=== PATIENT | male | born 1995 | race Hispanic/Latino ===

== ENCOUNTER 2017-07-25 15:02 | Emergency (ER) | payer OTHER ==
[2017-07-25 15:56] VITALS: BP 104/66; PULSE 70; RESP 16; TEMP 97.9; O2SAT 99
--- NOTE | 2017-07-25 17:30 | ED PDOC ---
HPI: Head Injury Time Seen by Provider: 07/25/17 16:50 Chief Complaint (Nursing): Trauma Chief Complaint (Provider): Head Injury History Per: Patient History/Exam Limitations: no limitations Injury Occurred (Timing): Hours Ago: (8) Patient States: Struck With Object Additional Complaint(s): Keo Dowell is a 21 year old male that presents to the ED with a chief complaint of a head injury that he has been experiencing for the past 8 hours a result of an object striking his head. Patient states that while walking on a [address] around 8 AM this morning a metal object fell off of a scaffolding approximately 15 feet above him and struck him on the top of his head, in the middle. He reports that afterwards he took two final exams. Patient denies any neck pain or LOC. Past Medical History Reviewed: Historical Data, Nursing Documentation, Vital Signs Vital Signs: Last Vital Signs Temp 97.9 F 07/25/17 15:52 Pulse 70 07/25/17 15:52 Resp 16 07/25/17 15:52 BP 104/66 07/25/17 15:52 Pulse Ox 99 07/25/17 15:52 - Medical History PMH: No Chronic Diseases - Family History Family History: States: Unknown Family Hx - Allergies Allergies/Adverse Reactions: Allergies Allergy/AdvReac Type Severity Reaction Status Date / Time No Known Allergies Allergy Verified 07/25/17 15:51 Review of Systems ROS Statement: Except As Marked, All Systems Reviewed And Found Negative Musculoskeletal: Negative for: Neck Pain Neurological: Positive for: Headache (mild as a result of head injury) Physical Exam - Reviewed Nursing Documentation Reviewed: Yes Vital Signs Reviewed: Yes - Physical Exam Appears: Positive for: Non-toxic, No Acute Distress Head Exam: Positive for: ATRAUMATIC, NORMOCEPHALIC Skin: Positive for: Normal Color, Warm Eye Exam: Positive for: Normal appearance, EOMI, PERRL Neck: Positive for: Normal, Painless ROM Extremity: Positive for: Normal ROM Neurologic/Psych: Positive for: 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 Negative for: Motor/Sensory Deficits (Strength 5/5 all extremities), Aphasia, Facial Droop - ECG O2 Sat by Pulse Oximetry: 99 (RA) Pulse Ox Interpretation: Normal Medical Decision Making Medical Decision Making: Impression: Head Injury Plan: * Discussed with patient risk of CT Scan, and how due to patient's normal physical and neuro exam, risks of CT Scan outweighs possible benefit. Advised patient to watch for alarming signs such as vomiting, vertigo, or difficulty thinking, and to return to ED immediately if these signs present. Instructed patient to avoid physical activity, and avoid computer screens and heavy reading if possible. Patient is stable for discharge home. Scribe Attestation: Documented by Ting Mccarty, acting as a scribe for Diana Kong PA-C. Provider Scribe Attestation: All medical record entries made by the Scribe were at my direction and personally dictated by me. I have reviewed the chart and agree that the record accurately reflects my personal performance of the history, physical exam, medical decision making, and the department course for this patient. I have also personally directed, reviewed, and agree with the discharge instructions and disposition. Disposition - Clinical Impression Clinical Impression: Head injury - Patient ED Disposition Is Patient to be Admitted: No - Disposition Disposition: Routine/Home Disposition Time: 17:20 Condition: FAIR Instructions: Head Injury (ED) Forms: [facility] [employer] (Ukrainian)
== END 2017-07-25 17:02 | disposition home or self-care (01) ==
LOC: H.ER 15:02
DX: S09.90XA Unspecified injury of head, initial encounter (principal); W20.8XXA Other cause of strike by thrown, projected or falling object, initial encounter